=== PATIENT | female | born 1985 | race Caucasian/White ===

== ENCOUNTER 2018-11-17 14:37 | Emergency (ER) | payer MEDICAID ==
[2018-11-17 14:47] VITALS: BP 131/73
[2018-11-17] MEDS ORDERED: DEXAMETHASONE 10 MG/ML VIAL PO STA (14:59)
[2018-11-17] MEDS ORDERED: CHERRY SYRUP 10 ML UDC PO ONE (14:59)
--- NOTE | 2018-11-17 15:00 | ED Physician Documentation ---
PD HPI HEENT - Stated complaint Stated Complaint: R EAR PX - Chief complaint Chief Complaint: Heent - History obtained from History obtained from: Patient - History of Present Illness Timing - onset: How many days ago (10) Timing - duration: Days (10) Timing - details: Gradual onset, Still present Location: Right ear Improves: Medication Associated symptoms: Congestion, Rhinorrhea, Headache Similar symptoms before: Diagnosis (OM with perforation) Recently seen: Clinic - Additional information Additional information: 33-year-old female has had a problem with her right ear for years and she has had a tympanic membrane rupture and she has had another occurrence of infection this past 2 weeks and she has been into see her ENT. At the ENT she had pus suctioned out of the year and she went on to some eardrops which helped for a while. She now has obstruction of her hearing and again things are not working. She does not have a cough or fever. Review of Systems Constitutional: denies: Fever Eyes: denies: Decreased vision Ears: reports: Loss of hearing, Ear pain Nose: reports: Rhinorrhea / runny nose, Congestion Throat: denies: Sore throat Cardiac: denies: Chest pain / pressure, Palpitations Respiratory: denies: Dyspnea, Cough GI: denies: Vomiting PD PAST MEDICAL HISTORY - Present Medications Home Medications: Ambulatory Orders Medication Instructions Recorded Confirmed Ofloxacin [Ocuflox] 5 ml OP 11/17/18 - Allergies Allergies/Adverse Reactions: Allergies Allergy/AdvReac Type Severity Reaction Status Date / Time amoxicillin Allergy Hives Verified 11/17/18 14:47 cefpodoxime [From Vantin] Allergy Hives Verified 11/17/18 14:47 PD ED PE NORMAL - Vitals Vital signs reviewed: Yes (hypertensive mild ) - General General: Alert and oriented X 3, No acute distress, Well developed/nourished - HEENT HEENT: Atraumatic, PERRL, EOMI, Pharynx benign, Dentition benign, Other (The right TM is dull, yellow and red with distortion of the landmarks. I am not seeing pus in the canal and there is no active drainage from the TM this afternoon. 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, No motor deficit, No sensory deficit, Normal speech Eye Opening: Spontaneous Motor: Obeys Commands Verbal: Oriented GCS Score: 15 - Psych Psych: Normal mood, Normal affect Results - Vitals Vitals: Vital Signs - 24 hr 11/17/18 14:45 Temperature 36.8 C Heart Rate 67 Respiratory 20 Rate Blood Pressure 131/73 H O2 Saturation 99 Oxygen O2 Source Room air PD MEDICAL DECISION MAKING - ED course Complexity details: considered differential, d/w patient ED course: 33 y/o female with chronic otitis and perforation is wondering about suction to remove pus and I am not seeing a hole or drainage to get the pus out. I have offered dexamethasone and abx and she has refused the oral abx but will try the dexamethasone and call her ENT on Monday. Departure - Departure Disposition: Home, Self Care Clinical Impression: Otitis media Qualifiers: Otitis media type: suppurative Chronicity: chronic Laterality: right Suppurative otitis media location: atticoantral Qualified Code(s): H66.21 - Chronic atticoantral suppurative otitis media, right ear Condition: Stable Instructions: Otitis Media Middle Ear Infection in Adults Follow-Up: Your, ENT doctor [Other]
== END 2018-11-17 15:24 | disposition home or self-care (01) ==
LOC: ED 14:37
DX: H66.21 Chronic atticoantral suppurative otitis media, right ear (principal); H72.91 Unspecified perforation of tympanic membrane, right ear
CPT/HCPCS: 99282; 99283; A9270